=== PATIENT | female | born 1985 | race Caucasian/White ===

== ENCOUNTER 2024-11-06 23:01 | Emergency (ER) | payer OTHER ==
[~2024-11-06] VITALS: Ht 162.6 cm; Wt 82.3 kg
--- NOTE | 2024-11-06 23:13 | ECG ---
[facility] Test Date: 2024-11-06 Test Time: 23:11:58 Pat Name: LULY ARANA Department: ER Room: Gender: F [employer] Work[employer]: BRYAN : 1985 Requested By: ELENA YOUNGBLOOD Order Number: [id number] Reading MD: Jorge Rand Measurements Intervals Weinert Rate: 79 P: 53 KS: 160 QRS: 60 QRSD: 87 T: 46 QT: 378 QTc: 434 Interpretive Statements Sinus rhythm Left atrial enlargement RSR' in V1 or V2, right VCD or RVH Electronically Signed On 11-08-2024 22:07:07 PDT by Jorge Rand Please click the below link to view image of tracing.
[2024-11-06 23:31] LABS: Hematocrit 35.6 % (36.0-46.0); Hemoglobin 11.7 g/dL (12.2-16.2); Mean Corpuscular Hemoglobin 24.6 pg (28.0-32.0); Mean Corpuscular Volume 74.7 fL (80.0-100.0); Nucleated Red Blood Cells % 0.1 %
[2024-11-06 23:47] LABS: Alanine Aminotransferase 14 U/L (7-40); Albumin 4.7 g/dL (3.2-4.8); Alkaline Phosphatase 55 U/L (46-116); Anion Gap 9 (5-15); BUN/Creatinine Ratio 16.1 (10.0-20.0); Blood Urea Nitrogen 15 mg/dL (9-23); Calcium 9.7 mg/dL (8.7-10.4); Carbon Dioxide 27 mmol/L (20-31); Chloride 107 mmol/L (98-107); Glucose 97 mg/dL (74-106); Magnesium 2.1 mg/dL (1.6-2.6); Potassium 4.1 mmol/L (3.5-5.1); Sodium 143 mmol/L (136-145); Total Protein 7.1 g/dL (5.7-8.2)
[2024-11-07 00:53] LABS: Bilirubin, Total 0.2 mg/dL (0.2-1.0)
--- NOTE | 2024-11-07 01:08 | ED.PDOC ---
HPI Comments 39-year-old female with a history of anxiety and prior presents to the ED for the chief complaint of intermittent pressure-like sternal chest pain. Patient states pain started a few hours before arrival to the ED, and note she had an episode of heartburn during the onset of her pain. Patient notes that her pain has a mostly subsided but it is but is still experiencing mild anxiety. Patient denies any headache, abdominal pain, radiating chest pain or any other associated symptoms, factors, modifiers at this time. Chief Complaint: Chest Pain Time Seen by MD: 01:05 Primary Care Provider: REGINO Reviewed Notes: Nurses Notes, Medications, Allergies Allergies: Coded Allergies: NO KNOWN ALLERGIES (Unverified , 03/10/16) Information Source: Patient, Spouse Mode of Arrival: Ambulatory Severity: Moderate Timing: Hours Duration: Since onset, Hours Prehospital treatment: None Location: Substernal Radiation: No Radiation Quality: Squeezing, Pressure Onset: At Rest Cardiac Risk Factors: None PE Risk Factors: None History of: None Modifying Factors: Exertion Associated Signs and Symptoms: None Past Medical History PAST MEDICAL HISTORY: Anxiety Surgical History: [employer] History: No Pertinent [employer] History Family History Family History: No family hx of Heart jing Social History Smoker: Non-Smoker Alcohol: Denies ETOH Use Drugs: Denies Drug Use Lives In: Home All Other Systems: Reviewed and Negative (Comprehensive systems review obtained and negative except for what is stated in the HPI.) Physical Exam General Appearance: No Apparent Distress, Obese HEENT: Other (Pupils and face symmetric. Moist mucous membranes.) Neck: Full Range of Motion, Normal Inspection Respiratory: Lungs Clear, No Accessory Muscle Use, No Respiratory Distress, Normal Breath Sounds Cardiovascular: No Edema, No JVD, Regular Rate/Rhythm Breast Exam: Deferred Gastrointestinal: Non Tender, Soft Genitalia: Deferred Pelvic: Deferred Rectal: Deferred Extremities: Normal inspection, Normal range of motion, Non-tender, No pedal edema Neurologic: Alert (Oriented x4), Normal Affect, Other (Ambulatory. Appears anxious.) Cerebellar Function: NOT DONE Reflexes: NOT DONE Skin: Dry, Normal Color, Warm Lymphatic: NOT DONE EKG EKG : Comments Sinus rhythm, rate 79, normal intervals, normal axis, possible right ventricular conduction delay, no ST/T changes. Was a procedure done? Was a procedure done?: No CP Differential Dx Differential Diagnosis: Angina, Anxiety / Panic Attack, Electrolyte Disorder, Pulmonary Embolus Differential Diagnosis: CHF, N/A Differential Diagnosis: Angina, Chest Wall Pain, Esophageal reflux/spasm, Gastritis, Myocardial Infarction, Pericarditis, Pneumonia X-Ray, Labs, Meds, VS Vital Signs Date Time Temp Pulse Resp B/P (MAP) Pulse Ox O2 Delivery O2 Flow Rate FiO2 11/07/24 03:12 97.4 63 17 106/69 (81) 98 97.4 11/06/24 23:11 79 11/06/24 23:03 98.7 86 16 150/72 98 98.7 Lab Test 11/07/24 00:10 11/06/24 23:16 Range/Units Troponin I High Sensitivity < 3 L < 3 L </=34 ng/L White Blood Count 8.5 4.4-10.8 10^3/uL Red Blood Count 4.76 4.0-5.20 10^6/uL Hemoglobin 11.7 L 12.2-16.2 g/dL Hematocrit 35.6 L 36.0-46.0 % Mean Corpuscular Volume 74.7 L 80.0-100.0 fL Mean Corpuscular Hemoglobin 24.6 L 28.0-32.0 pg Mean Corpuscular Hemoglobin Concent 32.9 32.0-36.0 g/dL Red Cell Distribution Width 16.9 H 11.8-14.3 % Platelet Count 322 140-450 10^3/uL Mean Platelet Volume 7.8 6.9-10.8 fL Neutrophils (%) (Auto) 51.7 37.0-80.0 % Lymphocytes (%) (Auto) 33.4 10.0-50.0 % Monocytes (%) (Auto) 6.2 0.0-12.0 % Eosinophils (%) (Auto) 6.2 0.0-7.0 % Basophils (%) (Auto) 2.5 H 0.0-2.0 % Neutrophils # (Auto) 4.4 1.6-8.6 10 ^3/uL Lymphocytes # (Auto) 2.9 0.4-5.4 10 ^3/uL Monocytes # (Auto) 0.5 0-1.3 10 ^3/uL Eosinophils # (Auto) 0.5 0-0.8 10 ^3/uL Basophils # (Auto) 0.2 0-0.2 10 ^3/uL Nucleated Red Blood Cells 0.1 % Sodium Level 143 136-145 mmol/L Potassium Level 4.1 3.5-5.1 mmol/L Chloride Level 107 98-107 mmol/L Carbon Dioxide Level 27 20-31 mmol/L Anion Gap 9 5-15 Blood Urea Nitrogen 15 9-23 mg/dL Creatinine 0.93 0.550-1.02 mg/dL Glomerular Filtration Rate Calc 80 >90 mL/min BUN/Creatinine Ratio 16.1 10.0-20.0 Serum Glucose 97 74-106 mg/dL Calcium Level 9.7 8.7-10.4 mg/dL Magnesium Level 2.1 1.6-2.6 mg/dL Total Bilirubin 0.2 0.2-1.0 mg/dL Aspartate Amino Transferase (AST) 29 13-40 U/L Alanine Aminotransferase (ALT) 14 7-40 U/L Alkaline Phosphatase 55 46-116 U/L Total Protein 7.1 5.7-8.2 g/dL Albumin 4.7 3.2-4.8 g/dL PATIENT: LULY ARANA ACCT: [id number] UNIT: [id number] : 1985 LOC: ER ROOM / BED: / AGE / SEX: 39 / F ADM STATUS: REG ER SERVICE [id number] ORDERING PHYSICIAN: ELENA STANLEY MD PROCEDURE(s): CXR1 - CHEST XRAY 1 VIEW REASON: cp ORDER NUMBER(s): [id number], ACCESSION NUMBER(s): [id number] CHEST RADIOGRAPH Indication: cp Technique: 1 view Comparison: None FINDINGS: Lines and Tubes: None Lungs: No focal consolidation. Pleura: No effusion or pneumothorax. Cardiomediastinal contours: Unremarkable. Bones: No acute osseous abnormality. IMPRESSION: 1. No acute cardiopulmonary abnormality. X-Ray, Labs, Meds, VS Comment 39-year-old female with a history of anxiety complaining of chest pain Vitals remarkable for BP 150/72 Exam unremarkable except for anxiety Rhythm strip independently interpreted by me: Sinus rhythm, rate 79, no ectopy. Chest x-ray unremarkable CBC, metabolic panel, BNP and 2 serial troponins unremarkable for any abnormality of acute significance Patient treated with the following in the ED: Viscous lidocaine 10 mL, 10 mL, Maalox 30 mL p.o., Ativan 0.5 mg p.o., Zofran ODT 4 mg p.o. On re-evaluation, patient is pain-free and states she feels less anxious. Vitals were stable. Hospitalization was considered, however patient had rapid improvement of sympt oms with treatment in the ED, and I no longer feel hospitalization is necessary. Patient now appears stable for discharge with close outpatient follow-up with her primary physician for referral to a concession attendant. Time of 1ST Reevaluation: 01:36 Reevaluation 1ST: Unchanged Time of 2ND Reevaluation: 03:00 Reevaluation 2ND: Improved Patient Education/Counseling: Diagnosis, Treatment, Need For Follow Up Family Education/Counseling: Diagnosis, Treatment, Need For Follow Up SEPSIS Sepsis Screen Date sepsis recognized/suspect: Nov 06, 2024 Time Sepsis recognized/suspect: 2302 Recent Procedure: No On Antibiotic Therapy: No Respiratory Rate >20: No Heart Rate >90: No Temp<36 C (96.8 F) or >38.3 C: No SBP <90 or MAP <65 mmHG: No New Acute Mental Status Change: No Is the patient on CPAP, BIPAP,: No Physician Orders Urinalysis (11/06/24 23:02) Electrocardigram (11/07/24 00:02) Electrocardigram (11/07/24 02:02) Chest Xray 1 View (11/07/24 00:55) Urinalysis (11/07/24 00:55) Test, Urine (11/07/24 00:55) Vital Signs Date Time Temp Pulse Resp B/P (MAP) Pulse Ox O2 Delivery O2 Flow Rate FiO2 11/07/24 03:12 97.4 63 17 106/69 (81) 98 97.4 11/06/24 23:11 79 11/06/24 23:03 98.7 86 16 150/72 98 98.7 Laboratory Tests Test 11/06/24 23:16 White Blood Count 8.5 10^3/uL (4.4-10.8) Departure 1 Departure Time of Disposition: 03:00 Impression: Primary Impression: Chest pain with low risk for cardiac etiology Disposition: 01 HOME / SELF CARE / HOMELESS Condition: Stable Additional Instructions: Your blood tests, including screening test for heart attack and heart failure, were unremarkable. Your chest x-ray was unremarkable. Your CT was unremarkable. Follow-up with your primary doctor in 1-2 days for referral to a concession attendant for further evaluation. Discharged With: Spouse Critical Care Note Critical Care Time?: No Stability Stability form required: No Heart Score Heart Score: Heart Score Response (Comments) Value History Slightly Suspicious 0 EKG Normal 0 Age <45 0 Risk Factors No known risk factors 0 Troponin Normal limit 0 Total 0 I personally scribed for ELENA STANLEY MD ([email or web address]) on 11/07/24 at 01:08. Electronically submitted by Dong Olivas ([email or web address]). I personally scribed for ELENA SATNLEY MD ([email or web address]) on 11/07/24 at 0 1:55. Electronically submitted by Dong Olivas ([email or web address]). ELENA STANLEY MD Nov 07, 2024 01:08
[2024-11-07] MEDS: LORazepam 0.5 MG TAB PO ONE (01:15)
[2024-11-07] MEDS: ONDANSETRON ODT 4 MG TAB PO ONE (01:15)
--- NOTE | 2024-11-07 01:35 | DVH ---
CHEST RADIOGRAPH Indication: cp Technique: 1 view Comparison: None FINDINGS: Lines and Tubes: None Lungs: No focal consolidation. Pleura: No effusion or pneumothorax. Cardiomediastinal contours: Unremarkable. Bones: No acute osseous abnormality. IMPRESSION: 1. No acute cardiopulmonary abnormality.
[2024-11-07 03:12] VITALS: BP 106/69; TEMP 97.4
[2024-11-07] MEDS: MAALOX PLUS or MAALOX 30 ML PO ONE (03:27)
[2024-11-07] MEDS: LIDOCAINE VISCOUS 2% 15ML UD PO ONE (03:27)
[2024-11-07 03:28] VITALS: PULSE 63; RESP 17; O2SAT 98
[2024-11-07] MEDS: DONNATAL 5ml ORAL Elix (BELLADONNA ALK-PHENOBARB) PO ONE (03:28)
== END 2024-11-07 03:47 | disposition home or self-care (01) ==
LOC: ER 23:01
DX: R07.89 Other chest pain (principal); F41.9 Anxiety disorder, unspecified; Z79.899 Other long term (current) drug therapy; Z98.891 History of uterine scar from previous surgery
CPT/HCPCS: 36415; 71045; 80053; 83735; 84484; 85025; 93005